=== PATIENT | female | born 1950 | race Caucasian/White ===

== ENCOUNTER 2018-06-21 21:41 | Emergency (ER) | payer MEDICARE, OTHER ==
[~2018-06-21] VITALS: Ht 152.4 cm; Wt 48.0 kg
[2018-06-21 22:49] LABS: GLUCOSE,POINT OF CARE 91 MG/DL (70-110)
[2018-06-21 23:02] LABS: APPEARANCE,URINE CLEAR (CLEAR); BILIRUBIN,URINE NEGATIVE (NEGATIVE); GLUCOSE, URINE (UA) NEGATIVE (NEGATIVE); KETONES,URINE NEGATIVE (NEGATIVE); LEUKOCYTE ESTERASE ,URINE NEGATIVE (NEGATIVE); NITRATE,URINE NEGATIVE (NEGATIVE); OCCULT BLOOD,URINE NEGATIVE (NEGATIVE); PROTEIN,URINE NEGATIVE (NEGATIVE); UROBILINOGEN,URINE 0.2 mg/dL (<=1.0)
[2018-06-21 23:08] LABS: AMPHET/METH SCREEN,URINE NEGATIVE (NEGATIVE); BARBITURATE SCREEN, URINE NEGATIVE (NEGATIVE); BENZODIAZEPINES SCREEN,URINE POSITIVE (NEGATIVE); CANNABINOID SCREEN,URINE NEGATIVE (NEGATIVE); COCAINE SCREEN,URINE NEGATIVE (NEGATIVE); METHADONE SCREEN, URINE NEGATIVE (NEGATIVE); OPIATE SCREEN,URINE NEGATIVE (NEGATIVE)
[2018-06-21 23:09] LABS: PHENCYCLIDINE SCREEN,URINE NEGATIVE (NEGATIVE)
[2018-06-22 01:46] LABS: BASOPHILS % (AUTO) 0.8 % (0.0-2.0); HEMATOCRIT 41.1 % (36-46); HEMOGLOBIN 13.7 g/dL (12.0-16.0); LYMPHOCYTES # (AUTO) 5.5 K/uL (1.0-4.8); LYMPHOCYTES % (AUTO) 61.2 % (22.0-44.0); MEAN CORPUSCULAR HEMOGLOBIN 30.8 pg (26.0-34.0); MEAN CORPUSCULAR HGB CONC 33.3 G/dL (31.0-37.0); MEAN CORPUSCULAR VOLUME 93 fL (80-100); MONOCYTES # (AUTO) 0.7 K/uL (0.1-1.0); MONOCYTES % (AUTO) 8.3 % (2.0-9.0); NEUTROPHILS % (AUTO) 22.7 % (40.0-70.0); PLATELET COUNT (AUTO) 333 K/uL (150-450); RED BLOOD CELL COUNT(AUTO) 4.44 MIL/uL (4.00-5.20); RED CELL DISTRIBUTION WIDTH 14.9 % (11.5-14.5)
[2018-06-22 01:59] LABS: ANION GAP 11 mmol/L (8-16); CALCIUM, TOTAL 9.3 mg/dL (8.8-10.5); CARBON DIOXIDE 28 mmol/L (22-29); CHLORIDE 109 mmol/L (98-107); CREATININE 0.55 mg/dL (0.60-1.30); GLOMERULAR FILTR. RATE CALC > 60 mL/min (>60); GLUCOSE,RANDOM 104 mg/dL (70-110); SODIUM SERUM 148 mmol/L (136-145); UREA NITROGEN, BLOOD 17 mg/dL (7-18)
[2018-06-22 02:06] LABS: ALANINE AMINOTRANSFERASE 13 U/L (12-78); ALBUMIN 3.6 g/dL (3.4-5.0); ALKALINE PHOSPHATASE 112 U/L (46-116); ASPARTATE AMINOTRANSFERASE 24 U/L (15-37); BILIRUBIN,TOTAL 0.2 mg/dL (0.1-1.0); TOTAL PROTEIN, SERUM 7.2 g/dL (6.4-8.2)
[2018-06-22 07:15] VITALS: BP 105/72
== END 2018-06-22 07:35 | disposition home or self-care (01) ==
LOC: EMS 21:42
DX: F10.229 Alcohol dependence with intoxication, unspecified (principal); F17.210 Nicotine dependence, cigarettes, uncomplicated; Y90.8 Blood alcohol level of 240 mg/100 ml or more
CPT/HCPCS: 36415; 80053; 80307; 81003; 82962; 85025; 99283; G0480; 51701

== ENCOUNTER → 2018-09-20 | Outpatient (CLI) | payer MEDICARE, OTHER | END | disposition home or self-care (01) | LOC: LABMN 13:15 | DX: F33.2 Major depressive disorder, recurrent severe without psychotic features (principal) | CPT/HCPCS: 80074; 86804 ==

== ENCOUNTER 2019-11-26 22:05 | Emergency (ER) | payer MEDICARE, OTHER ==
[~2019-11-26] VITALS: Ht 165.1 cm; Wt 45.5 kg
[2019-11-27 01:03] LABS: HEMATOCRIT 39.4 % (36-46); HEMOGLOBIN 13.3 g/dL (12.0-16.0); MEAN CORPUSCULAR HEMOGLOBIN 30.9 pg (26.0-34.0); MEAN CORPUSCULAR HGB CONC 33.6 G/dL (31.0-37.0); MEAN CORPUSCULAR VOLUME 92 fL (80-100); PLATELET COUNT (AUTO) 313 K/uL (150-450); RED BLOOD CELL COUNT(AUTO) 4.29 MIL/uL (4.00-5.20); RED CELL DISTRIBUTION WIDTH 15.3 % (11.5-14.5)
[2019-11-27 01:10] LABS: ANION GAP 9 mmol/L (8-16); CALCIUM, TOTAL 9.1 mg/dL (8.8-10.5); CARBON DIOXIDE 27 mmol/L (22-29); CHLORIDE 108 mmol/L (98-107); CREATININE 0.66 mg/dL (0.60-1.30); GLOMERULAR FILTR. RATE CALC > 60 mL/min (>60); GLUCOSE,RANDOM 103 mg/dL (70-110); POTASSIUM 3.6 mmol/L (3.5-5.1); SODIUM SERUM 144 mmol/L (136-145); UREA NITROGEN, BLOOD 13 mg/dL (7-18)
[2019-11-27 01:16] LABS: ALANINE AMINOTRANSFERASE 35 U/L (12-78); ALBUMIN 3.9 g/dL (3.4-5.0); ALKALINE PHOSPHATASE 87 U/L (46-116); ASPARTATE AMINOTRANSFERASE 36 U/L (15-37); BILIRUBIN,TOTAL 0.3 mg/dL (0.1-1.0); TOTAL PROTEIN, SERUM 7.1 g/dL (6.4-8.2)
[2019-11-27 01:46] LABS: BAND NEUTROPHILS % (MANUAL) 1 % (0-5); EOSINOPHILS % (MANUAL) 15 % (1-6); LYMPHOCYTES % (MANUAL) 41 % (22-44); MONOCYTES % (MANUAL) 9 % (2-9); REACTIVE LYMPHOCYTES 8 % (0-0); SEGMENTED NEUTROPHILS % 26 % (40-70)
[2019-11-27 02:38] VITALS: BP 100/78
== END 2019-11-27 02:50 | disposition home or self-care (01) ==
LOC: EMS 22:05
DX: F10.129 Alcohol abuse with intoxication, unspecified (principal); F17.210 Nicotine dependence, cigarettes, uncomplicated; Y90.8 Blood alcohol level of 240 mg/100 ml or more
CPT/HCPCS: 36415; 80053; 85025; 99283; G0480

== ENCOUNTER 2021-12-25 12:27 | Inpatient (IN) | payer MEDICARE, MEDICAID ==
[~2021-12-25] VITALS: Ht 162.6 cm; Wt 45.4 kg
[2021-12-25 14:13] LABS: BASOPHILS % (AUTO) 0.8 % (0.0-2.0); HEMATOCRIT 39.6 % (36-46); LYMPHOCYTES # (AUTO) 4.2 K/uL (1.0-4.8); LYMPHOCYTES % (AUTO) 43.9 % (22.0-44.0); MEAN CORPUSCULAR HEMOGLOBIN 28.5 pg (26.0-34.0); MEAN CORPUSCULAR VOLUME 87 fL (80-100); MONOCYTES # (AUTO) 0.6 K/uL (0.1-1.0); MONOCYTES % (AUTO) 6.3 % (2.0-9.0); PLATELET COUNT (AUTO) 368 K/uL (150-450); RED BLOOD CELL COUNT(AUTO) 4.57 MIL/uL (4.00-5.20); RED CELL DISTRIBUTION WIDTH 16.5 % (11.5-14.5)
[2021-12-25 14:22] LABS: ANION GAP 9 mmol/L (8-16); CALCIUM, TOTAL 9.1 mg/dL (8.8-10.5); CARBON DIOXIDE 29 mmol/L (22-29); CHLORIDE 102 mmol/L (98-107); CREATININE 0.87 mg/dL (0.60-1.30); GLUCOSE,RANDOM 101 mg/dL (70-110); POTASSIUM 3.6 mmol/L (3.5-5.1); SODIUM SERUM 140 mmol/L (136-145); UREA NITROGEN, BLOOD 11 mg/dL (7-18)
[2021-12-25 14:23] LABS: GLOMERULAR FILTR. RATE CALC > 60 mL/min (>60)
[2021-12-25 14:30] LABS: LACTIC ACID 1.4 mmol/L (0.4-2.0)
[2021-12-25 14:37] LABS: AMMONIA 10 umol/L (11-32)
[2021-12-25 14:47] LABS: ALANINE AMINOTRANSFERASE 23 U/L (12-78); ALBUMIN 4.1 g/dL (3.4-5.0); ALKALINE PHOSPHATASE 105 U/L (46-116); ASPARTATE AMINOTRANSFERASE 24 U/L (15-37); BILIRUBIN,TOTAL 0.6 mg/dL (0.1-1.0); CREATINE KINASE, TOTAL ONLY 100 U/L (26-192); TOTAL PROTEIN, SERUM 7.9 g/dL (6.4-8.2)
[2021-12-25 15:54] LABS: COVID AG,FIA SOURCE NASOPHARYNGEAL
[2021-12-25] MEDS ORDERED: ZOLPIDEM TARTRATE 10 MG TABLET PO PRN (19:00)
[2021-12-25] MEDS ORDERED: HALOPERIDOL 5 MG TABLET PO PRN (19:00)
[2021-12-25] MEDS ORDERED: LORazepam 2 MG TABLET PO PRN (19:00)
[2021-12-25] MEDS ORDERED: ACETAMINOPHEN 325 MG TABLET PO ONE (22:00)
[2021-12-26 02:00] VITALS: BP 104/65
[2021-12-26] MEDS ORDERED: IPRATROPIUM BROMIDE 0.5 MG/2.5 ML NEB SOLUTION NEB PRN (07:45)
[2021-12-26] MEDS ORDERED: ALBUTEROL SULFATE 2.5 MG/0.5 ML NEB SOLUTION NEB PRN (07:45)
[2021-12-26] MEDS ORDERED: BENZOCAINE/MENTHOL LOZENGE PO PRN (07:45)
[2021-12-26] MEDS ORDERED: OMEPRAZOLE 20 MG CAPSULE PO PRN (07:45)
[2021-12-26] MEDS ORDERED: PETROLATUM,WHITE 28 GM JELLY TP PRN (07:45)
[2021-12-26] MEDS ORDERED: ACETAMINOPHEN 325 MG TABLET PO PRN (07:45)
[2021-12-26] MEDS ORDERED: MAGNESIUM HYDROXIDE SUSPENSION 30 ML UDCUP PO PRN (07:45)
[2021-12-26] MEDS ORDERED: BACITRACIN 28 GM OINTMENT TP PRN (07:45)
[2021-12-26] MEDS ORDERED: ALBUTEROL SULFATE HFA 90 MCG/PUFF 8 GM INHALER IH PRN (07:45)
[2021-12-26] MEDS ORDERED: CloNIDine HCL 0.1 MG TABLET PO PRN (07:45)
[2021-12-26] MEDS ORDERED: ONDANSETRON HCL 4 MG TABLET PO PRN (07:45)
[2021-12-26] MEDS ORDERED: MAG HYDROX/AL HYDROX/SIMETH ES 30 ML SUSPENSION UDCUP PO PRN (07:45)
[2021-12-26] MEDS ORDERED: DOCUSATE SODIUM 100 MG CAPSULE PO PRN (07:45)
[2021-12-26] MEDS ORDERED: LOPERAMIDE HCL 2 MG CAPSULE PO PRN (07:45)
[2021-12-26] MEDS ORDERED: IBUPROFEN 600 MG TABLET PO PRN (07:45)
[2021-12-26 08:15] VITALS: BP 96/61
[2021-12-26] MEDS: ASPIRIN 81 MG CHEWABLE TABLET PO SCH (08:23)
[2021-12-26 09:23] LABS: APPEARANCE,URINE CLEAR (CLEAR); BILIRUBIN,URINE NEGATIVE (NEGATIVE); GLUCOSE, URINE (UA) NEGATIVE (NEGATIVE); KETONES,URINE NEGATIVE (NEGATIVE); LEUKOCYTE ESTERASE ,URINE NEGATIVE (NEGATIVE); NITRATE,URINE NEGATIVE (NEGATIVE); OCCULT BLOOD,URINE NEGATIVE (NEGATIVE); PROTEIN,URINE NEGATIVE (NEGATIVE); SPECIFIC GRAVITIY, URINE 1.021 (1.003-1.030); UROBILINOGEN,URINE <=1.0 mg/dL (<=1.0)
[2021-12-26 09:35] LABS: AMPHET/METH SCREEN,URINE NEGATIVE (NEGATIVE); BARBITURATE SCREEN, URINE NEGATIVE (NEGATIVE); BENZODIAZEPINES SCREEN,URINE NEGATIVE (NEGATIVE); CANNABINOID SCREEN,URINE NEGATIVE (NEGATIVE); COCAINE SCREEN,URINE NEGATIVE (NEGATIVE); METHADONE SCREEN, URINE NEGATIVE (NEGATIVE); OPIATE SCREEN,URINE NEGATIVE (NEGATIVE)
[2021-12-26 09:37] LABS: PHENCYCLIDINE SCREEN,URINE NEGATIVE (NEGATIVE)
[2021-12-26 16:12] VITALS: BP 110/63
[2021-12-26 20:52] VITALS: BP 100/48
[2021-12-27 07:50] LABS: MAGNESIUM 1.6 mg/dL (1.80-2.40); PHOSPHORUS 3.8 mg/dL (2.5-4.9)
[2021-12-27 08:00] VITALS: BP 113/60
[2021-12-27] MEDS: FOLIC ACID 1 MG TABLET PO SCH (09:05)
[2021-12-27] MEDS: MULTIVITAMINS WITH MINERALS, THERAPEUTIC TABLET PO SCH (09:05)
[2021-12-27] MEDS: THIAMINE 100 MG TABLET PO SCH (09:06)
[2021-12-27] MEDS: ASPIRIN 81 MG CHEWABLE TABLET PO SCH (09:06)
[2021-12-27] MEDS: ALBUTEROL SULFATE HFA 90 MCG/PUFF 8 GM INHALER IH PRN (11:23)
[2021-12-27 16:14] VITALS: BP 113/52
[2021-12-28] MEDS: MULTIVITAMINS WITH MINERALS, THERAPEUTIC TABLET PO SCH (08:44)
[2021-12-28] MEDS: ASPIRIN 81 MG CHEWABLE TABLET PO SCH (08:44)
[2021-12-28] MEDS: THIAMINE 100 MG TABLET PO SCH (08:44)
[2021-12-28] MEDS: FOLIC ACID 1 MG TABLET PO SCH (08:44)
[2021-12-28 09:00] VITALS: BP 109/67
[2021-12-28 16:00] VITALS: BP 123/58
[2021-12-28 16:13] VITALS: BP 123/61
[2021-12-28] MEDS: ALBUTEROL SULFATE HFA 90 MCG/PUFF 8 GM INHALER IH PRN (18:33)
[2021-12-28 18:36] VITALS: BP 132/61
[2021-12-28] MEDS: OLANZapine 5 MG TABLET PO SCH (21:36)
[2021-12-29] MEDS: MULTIVITAMINS WITH MINERALS, THERAPEUTIC TABLET PO SCH (08:20)
[2021-12-29] MEDS: FOLIC ACID 1 MG TABLET PO SCH (08:20)
[2021-12-29] MEDS: THIAMINE 100 MG TABLET PO SCH (08:20)
[2021-12-29] MEDS: ASPIRIN 81 MG CHEWABLE TABLET PO SCH (08:20)
[2021-12-29] MEDS: ALBUTEROL SULFATE HFA 90 MCG/PUFF 8 GM INHALER IH PRN ×2 (08:21→16:19)
[2021-12-29 08:42] VITALS: BP 112/76
[2021-12-29 16:34] VITALS: BP 107/56
[2021-12-29] MEDS: OLANZapine 5 MG TABLET PO SCH (20:42)
[2021-12-30 06:59] LABS: COVID AG,FIA SOURCE NASAL SWAB
[2021-12-30] MEDS: MULTIVITAMINS WITH MINERALS, THERAPEUTIC TABLET PO SCH (08:16)
[2021-12-30] MEDS: THIAMINE 100 MG TABLET PO SCH (08:16)
[2021-12-30] MEDS: FOLIC ACID 1 MG TABLET PO SCH (08:16)
[2021-12-30] MEDS: ALBUTEROL SULFATE HFA 90 MCG/PUFF 8 GM INHALER IH PRN (08:16)
[2021-12-30] MEDS: ASPIRIN 81 MG CHEWABLE TABLET PO SCH (08:16)
[2021-12-30 09:19] VITALS: BP 107/64
[2021-12-30 16:38] VITALS: BP 103/64
[2021-12-30] MEDS: OLANZapine 5 MG TABLET PO SCH (20:19)
[2021-12-30 21:55] VITALS: BP 139/76
[2021-12-31 08:00] VITALS: BP 104/56
[2021-12-31] MEDS: MULTIVITAMINS WITH MINERALS, THERAPEUTIC TABLET PO SCH (08:24)
[2021-12-31] MEDS: ASPIRIN 81 MG CHEWABLE TABLET PO SCH (08:24)
[2021-12-31] MEDS: FOLIC ACID 1 MG TABLET PO SCH (08:24)
[2021-12-31] MEDS: THIAMINE 100 MG TABLET PO SCH (08:24)
[2021-12-31] MEDS: ALBUTEROL SULFATE HFA 90 MCG/PUFF 8 GM INHALER IH PRN ×2 (08:25→20:58)
[2021-12-31 16:00] VITALS: BP 124/65
[2021-12-31] MEDS: OLANZapine 5 MG TABLET PO SCH (20:58)
[2021-12-31 21:08] VITALS: BP 139/60
[2022-01-01] MEDS: FOLIC ACID 1 MG TABLET PO SCH (08:20)
[2022-01-01] MEDS: THIAMINE 100 MG TABLET PO SCH (08:20)
[2022-01-01] MEDS: ASPIRIN 81 MG CHEWABLE TABLET PO SCH (08:20)
[2022-01-01] MEDS: MULTIVITAMINS WITH MINERALS, THERAPEUTIC TABLET PO SCH (08:20)
[2022-01-01] MEDS: ALBUTEROL SULFATE HFA 90 MCG/PUFF 8 GM INHALER IH PRN ×2 (08:32→20:50)
[2022-01-01 10:48] VITALS: BP 107/58
[2022-01-01 16:19] VITALS: BP 104/62
[2022-01-01] MEDS: OLANZapine 5 MG TABLET PO SCH (20:49)
[2022-01-02 08:05] VITALS: BP 118/76
[2022-01-02] MEDS: FOLIC ACID 1 MG TABLET PO SCH (08:59)
[2022-01-02] MEDS: THIAMINE 100 MG TABLET PO SCH (08:59)
[2022-01-02] MEDS: MULTIVITAMINS WITH MINERALS, THERAPEUTIC TABLET PO SCH (08:59)
[2022-01-02] MEDS: ASPIRIN 81 MG CHEWABLE TABLET PO SCH (08:59)
[2022-01-02] MEDS: ALBUTEROL SULFATE HFA 90 MCG/PUFF 8 GM INHALER IH PRN ×2 (14:39→20:54)
[2022-01-02 16:09] VITALS: BP 117/58
[2022-01-02] MEDS: OLANZapine 5 MG TABLET PO SCH (20:52)
[2022-01-03] MEDS: FOLIC ACID 1 MG TABLET PO SCH (08:58)
[2022-01-03] MEDS: THIAMINE 100 MG TABLET PO SCH (08:58)
[2022-01-03] MEDS: MULTIVITAMINS WITH MINERALS, THERAPEUTIC TABLET PO SCH (08:58)
[2022-01-03] MEDS: ASPIRIN 81 MG CHEWABLE TABLET PO SCH (08:59)
[2022-01-03 09:00] VITALS: BP 136/55
[2022-01-03] MEDS: ALBUTEROL SULFATE HFA 90 MCG/PUFF 8 GM INHALER IH PRN ×2 (09:02→18:58)
[2022-01-03 16:20] VITALS: BP 126/50
[2022-01-03] MEDS: OLANZapine 5 MG TABLET PO SCH (21:04)
[2022-01-03] MEDS ORDERED: OLAN5TAB52 PO (22:34)
[2022-01-04] MEDS: ALBUTEROL SULFATE HFA 90 MCG/PUFF 8 GM INHALER IH PRN (06:59)
[2022-01-04 08:00] VITALS: BP 152/78
[2022-01-04] MEDS: THIAMINE 100 MG TABLET PO SCH (08:12)
[2022-01-04] MEDS: FOLIC ACID 1 MG TABLET PO SCH (08:12)
[2022-01-04] MEDS: ASPIRIN 81 MG CHEWABLE TABLET PO SCH (08:12)
[2022-01-04] MEDS: MULTIVITAMINS WITH MINERALS, THERAPEUTIC TABLET PO SCH (08:12)
== END 2022-01-04 09:30 | disposition home or self-care (01) | DRG 754 ==
LOC: EMS 12:27 → UNDOADMIN 12-26 00:36 → 3EI 12-26 00:36
PROVIDERS: ADMIT Psychiatry & Neurology Psychiatry; ATTEND Psychiatry & Neurology Psychiatry
DX: F32.9 Major depressive disorder, single episode, unspecified (principal); B18.2 Chronic viral hepatitis C; E05.00 Thyrotoxicosis with diffuse goiter without thyrotoxic crisis or storm; Z20.822 Contact with and (suspected) exposure to COVID-19; F10.229 Alcohol dependence with intoxication, unspecified; F41.9 Anxiety disorder, unspecified; G47.00 Insomnia, unspecified; K59.00 Constipation, unspecified; R26.89 Other abnormalities of gait and mobility; F17.210 Nicotine dependence, cigarettes, uncomplicated; Z71.6 Tobacco abuse counseling; Z79.899 Other long term (current) drug therapy
CPT/HCPCS: 51702; 70450; 71045; 72125; 80053; 80307; 81003; 82140; 82550; 83605; 83735; 84100; 84484; 85025; 85730; 87040; 93005; 99285; G0480; J3535; 36415-L1; 36415-TC